=== PATIENT | female | born 2000 | race Caucasian/White ===

== ENCOUNTER 2022-02-03 15:58 | Observation (INO) ==
[2022-02-03 17:55] LABS: Basophils # (auto) 0.01 K/uL (0-0.2); Basophils % (auto) 0.1 %; Hematocrit (blood only) 36.7 % (37-47); Hemoglobin 13.1 g/dL (12.0-16.0); Immature Granulocytes # (auto) 0.04 K/uL (0.00-0.02); Immature Granulocytes % (auto) 0.3 %; Lymphocytes # (auto) 0.68 K/uL (1.2-3.4); Lymphocytes % (auto) 4.5 %; Mean Corpuscular Hgb Conc 35.7 g/dL (32-36); Mean Corpuscular Volume 89.5 fL (80-100); Mean Platelet Volume 9.5 fL (7.4-10.4); Monocytes # (auto) 1.17 K/uL (0.11-0.59); Monocytes % (auto) 7.7 %; Neutrophils # (auto) 13.28 K/uL (1.4-6.5); Neutrophils % (auto) 87.4 %; Platelet Count 228 K/uL (130-400); RDW Coefficient of Variation 12.6 % (11.5-14.5); RDW Standard Deviation 41.4 fL (36.4-46.3); White Blood Count 15.18 K/uL (4.8-10.8)
[2022-02-03 18:17] LABS: Alanine Aminotransferase 17 U/L (7-52); Albumin Globulin Ratio 1.6 (0.9-2); Albumin Level 4.7 gm/dl (3.4-5.0); Alkaline Phosphatase 52 U/L (34-104); Anion Gap 13 (3-11); Aspartate Aminotransferase 16 U/L (13-39); BUN Creatinine Ratio 17.8 (10-20); Bilirubin,Total 0.9 mg/dl (0.2-1.0); Blood Urea Nitrogen 13 mg/dl (6-23); Calcium 9.6 mg/dl (8.5-10.1); Carbon Dioxide 22 mmol/L (21-32); Chloride 101 mmol/L (98-107); Est GFR (African American) 137.4 ml/min; Est GFR (Non-African American) 118.6 ml/min; Globulin 2.9 gm/dl (2.5-4.0); Glucose 95 mg/dl (70-99(Fasting)); Lipase 12 U/L (11-82); Potassium 3.9 mmol/L (3.5-5.1); Sodium 136 mmol/L (136-145); Total Protein 7.6 gm/dl (6.0-8.3)
--- NOTE | 2022-02-03 19:11 | Emergency Department Note ---
Impression & Plan Sepsis, Abdominal pain, Pyelonephritis, Nausea vomiting and diarrhea, Acute dehydration ED Provider Note NAME: JANICE CORDOBA AGE: 21 SEX: F : 2000 ARRIVES VIA: Walk-In INFORMANT: Patient, ED PROVIDER(S): Hill Najera MD Chief Complaint: Abdominal pain, nausea vomiting, diarrhea HPI: Patient does present with the above symptoms and states that been ongoing approximate 3 days. The patient states that she did not go anywhere for spring other than at home which is in the [facility]. Patient has had low-grade temperature. Patient was seen at [facility] and then sent here for further evaluation and treatment. The patient denies any cough. The patient has had about 2 stools a day but says that they are loose. No recent antibiotics or known sick contacts. The patient denies any recent travel. The patient does admit to increasing urinary frequency but denies any dysuria hematuria. Patient denies any chest pains or shortness of breath. ROS: See HPI for pertinent positives and negatives. A total of 10 systems were reviewed and otherwise negative. Past medical history: See below Surgical history: See below Social history: See below Physical Exam: GENERAL: Mildly uncomfortable in appearance, wearing a mask. EYE EXAM: Normal conjunctiva. PERRL, no anisocoria and EOM's grossly intact w/o pain. NECK: Supple, no nuchal rigidity, no adenopathy, non-tender. No signs of mening ismus. LUNGS: Clear to auscultation. Normal chest wall mechanics. HEART: Tachycardic and regular, no MRG. ABDOMEN: Abdomen soft, mild diffuse abdominal pain but without localization, negative obturators and psoas, normo-active bowel sounds, no masses, no rebound or guarding. BACK: Mild left-sided CVA TTP. SKIN: No rashes and no bruising. UPPER EXTREMITIES: Upper extremities are grossly normal. LOWER EXTREMITIES: Grossly normal, no edema. NEURO EXAM: A&O x3, cranial nerves II-XII grossly intact, normal speech, moves all 4 extremities on command w/o issue. Differential diagnoses: Appendicitis, ovarian cyst, ovarian torsion, ectopic , TOA, PID, infections, diverticulitis, UTI, obstruction, mesenteric ischemia, aortic pathology, inflammatory bowel disease, renal colic, PUD, pancr eatitis, biliary pathology, hernia, volvulus, constipation, as well as other pathologies. Course: Patient was seen and evaluated the bedside. Full history physical exam was performed. Imaging Studies: See Below Cardiac monitoring: An order was placed for continuous cardiac monitoring. The monitor shows a rate of 110 with tachycardic and regular rhythm. MDM: Patient was seen due to concern for abdominal pain nausea vomiting diarrhea. Patient did have diffuse abdominal discomfort did have some mild left-sided flank discomfort. Blood work was obtained and the patient was treated symptom atically with IV fluids and nausea medication. CT abdomen pelvis was also obtained. Patient does have mild leukocytosis of 15 with a hemoglobin of 13. Platelet count is unremarkable. Kidney function unremarkable. Urinalysis does appear to be infected as the patient is positive for bacteria WBCs and nitrites. The patient CT does show findings consistent with a left-sided pyelonephritis. I did reevaluate the patient who stated that she had mild improvement in symptoms. The patient's mother eventually arrived and I did discuss observation versus close outpatient follow-up. After reassessment and repeat discussion with the patient and patient's mother at bedside they are primarily concerned about her pain and will refer to be observed at this time. Do not think this is unreasonable as she technically meets for sepsis. The patient did receive her Rocephin. Patient did receive additional IV fluids and Toradol. The patient did have a elevated temperature of 102 and was given a dose of Tylenol. I did speak with the on-call hospitalist Dr. Rush and the patient was admitted to [facility] medicine service. Past Med/Surg History Medical History No pertinent past medical history Surgical History No pertinent past surgical history Social History Smoking Status: Never smoker Hx Substance Use: Yes Non-Prescribed Medications: Marijuana Feels Safe at Home: Yes Allergies Allergies Allergy/AdvReac Type Severity Reaction Status Date / Time No Known Allergies Allergy Unverified 02/03/22 19:45 Home Meds Home Medications Medication Instructions Recorded Confirmed dextroamphetamine-amphetamine ER 10 mg PO DAILY 02/03/22 02/03/22 10 mg 24hr capsule,extend release (Adderall XR) escitalopram oxalate 10 mg tablet 10 mg PO DAILY 02/03/22 02/03/22 (Lexapro) Results & Data (ED) Vital Signs Vital Signs - 24 hr 02/03/22 16:05 02/03/22 19:11 02/03/22 21:19 Temperature 37.6 C H 37.7 C H Temperature Source Temporal Artery Scan Oral Pulse Rate 112 H Pulse Rate [Left Finger] 99 H 103 H Pulse Rhythm [Left Finger] Regular Respiratory Rate 21 16 14 Respiratory Effort / Characteristics Non-Labored Spontaneous Non-Labored Non-Labored Respiratory Depth Normal Normal Normal Respiratory Pattern Regular Regular Regular Blood Pressure 123/64 Blood Pressure [Right Arm] 118/70 112/66 Blood Pressure Mean 83 Blood Pressure Mean [Right Arm] 86 81 Blood Pressure Position Sitting Blood Pressure Position [Right Arm] Lying Lying Pulse Oximetry 100 100 100 Oxygen Delivery Method Room Air Room Air Room Air Sepsis Recent Fever Within 48 Hours Yes Sepsis New/Unexplained Change in Mental Status N/A Sepsis Action Taken by Nursing Physician Notified 02/03/22 22:10 Temperature 38.8 C H Temperature Source Oral Pulse Rate Pulse Rate [Left Finger] 101 H Pulse Rhythm [Left Finger] Respiratory Rate 16 Respiratory Effort / Characteristics Non-Labored Respiratory Depth Normal Respiratory Pattern Regular Blood Pressure Blood Pressure [Right Arm] 100/59 L Blood Pressure Mean Blood Pressure Mean [Right Arm] 72 Blood Pressure Position Blood Pressure Position [Right Arm] Pulse Oximetry 100 Oxygen Delivery Method Room Air Sepsis Recent Fever Within 48 Hours Sepsis New/Unexplained Change in Mental Status Sepsis Action Taken by Residential Medications Current Medication List: was personally reviewed by me Laboratory Data Attestation: I reviewed the patient's lab results. Result diagrams: 02/03/22 17:32 02/03/22 17:32 Lab Results 02/03/22 02/03/22 02/03/22 Range/Units 17:32 17:32 17:45 WBC 15.18 H (4.8-10.8) K/uL RBC 4.10 L (4.2-5.4) M/uL Hgb 13.1 (12.0-16.0) g/dL Hct 36.7 L (37-47) % MCV 89.5 (80-100) fL MCH 32.0 (25-34) pg MCHC 35.7 (32-36) g/dL RDW Std Deviation 41.4 (36.4-46.3) fL RDW Coeff of Frank 12.6 (11.5-14.5) % Plt Count 228 (130-400) K/uL MPV 9.5 (7.4-10.4) fL Immature Gran % (Auto) 0.3 % Neut % (Auto) 87.4 % Lymph % (Auto) 4.5 % [place] % (Auto) 7.7 % Eos % (Auto) 0.0 % Baso % (Auto) 0.1 % Neut # (Auto) 13.28 H (1.4-6.5) K/uL Lymph # (Auto) 0.68 L (1.2-3.4) K/uL [place] # (Auto) 1.17 H (0.11-0.59) K/uL Eos # (Auto) 0.00 (0-0.5) K/uL Baso # (Auto) 0.01 (0-0.2) K/uL Immature Gran # (Auto) 0.04 H (0.00-0.02) K/uL Sodium 136 (136-145) mmol/L Potassium 3.9 (3.5-5.1) mmol/L Chloride 101 (98-107) mmol/L Carbon Dioxide 22 (21-32) mmol/L Anion Gap 13 H (3-11) BUN 13 (6-23) mg/dl Creatinine 0.73 (0.6-1.2) mg/dl Est Cr Clr Drug Dosing Not Reportable Est GFR ( Amer) 137.4 ml/min Est GFR (Non-Af Amer) 118.6 ml/min BUN/Creatinine Ratio 17.8 (10-20) Glucose 95 (70-99(Fasting)) mg/dl Calcium 9.6 (8.5-10.1) mg/dl Total Bilirubin 0.9 (0.2-1.0) mg/dl AST 16 (13-39) U/L ALT 17 (7-52) U/L Alkaline Phosphatase 52 (34-104) U/L Total Protein 7.6 (6.0-8.3) gm/dl Albumin 4.7 (3.4-5.0) gm/dl Globulin 2.9 (2.5-4.0) gm/dl Albumin/Globulin Ratio 1.6 (0.9-2) Lipase 12 (11-82) U/L Urine Color Dark Yellow Urine Appearance Clear (Clear) Urine pH 6.0 (4.5-7.5) Ur Specific [place] 1.023 (1.000-1.030) Urine Protein 2+ H (Negative) Urine Glucose (UA) Negative (Negative) Urine Ketones 3+ H (Negative) Urine Blood 3+ H (Negative) Urine Nitrite Positive A (Negative) Urine Bilirubin Negative (Negative) Urine Urobilinogen Negative (Negative) Ur Leukocyte Esterase Negative (Negative) Urine WBC (Auto) 10-30 H (0-5) /hpf Urine RBC (Auto) 5-10 H (0-4) /hpf U Hyaline Cast (Auto) 10-30 H (0-5) /lpf U Epithel Cells (Auto) 0-5 (0-5) /lpf Urine Bacteria (Auto) 4+ H (Negative) POC Ur Test (NEG) 02/03/22 Range/Units 17:48 WBC (4.8-10.8) K/uL RBC (4.2-5.4) M/uL Hgb (12.0-16.0) g/dL Hct (37-47) % MCV (80-100) fL MCH (25-34) pg MCHC (32-36) g/dL RDW Std Deviation (36.4-46.3) fL RDW Coeff of Frank (11.5-14.5) % Plt Count (130-400) K/uL MPV (7.4-10.4) fL Immature Gran % (Auto) % Neut % (Auto) % Lymph % (Auto) % [place] % (Auto) % Eos % (Auto) % Baso % (Auto) % Neut # (Auto) (1.4-6.5) K/uL Lymph # (Auto) (1.2-3.4) K/uL [place] # (Auto) (0.11-0.59) K/uL Eos # (Auto) (0-0.5) K/uL Baso # (Auto) (0-0.2) K/uL Immature Gran # (Auto) (0.00-0.02) K/uL Sodium (136-145) mmol/L Potassium (3.5-5.1) mmol/L Chloride (98-107) mmol/L Carbon Dioxide (21-32) mmol/L Anion Gap (3-11) BUN (6-23) mg/dl Creatinine (0.6-1.2) mg/dl Est Cr Clr Drug Dosing Est GFR ( Amer) ml/min Est GFR (Non-Af Amer) ml/min BUN/Creatinine Ratio (10-20) Glucose (70-99(Fasting)) mg/dl Calcium (8.5-10.1) mg/dl Total Bilirubin (0.2-1.0) mg/dl AST (13-39) U/L ALT (7-52) U/L Alkaline Phosphatase (34-104) U/L Total Protein (6.0-8.3) gm/dl Albumin (3.4-5.0) gm/dl Globulin (2.5-4.0) gm/dl Albumin/Globulin Ratio (0.9-2) Lipase (11-82) U/L Urine Color Urine Appearance (Clear) Urine pH (4.5-7.5) Ur Specific [place] (1.000-1.030) Urine Protein (Negative) Urine Glucose (UA) (Negative) Urine Ketones (Negative) Urine Blood (Negative) Urine Nitrite (Negative) Urine Bilirubin (Negative) Urine Urobilinogen (Negative) Ur Leukocyte Esterase (Negative) Urine WBC (Auto) (0-5) /hpf Urine RBC (Auto) (0-4) /hpf U Hyaline Cast (Auto) (0-5) /lpf U Epithel Cells (Auto) (0-5) /lpf Urine Bacteria (Auto) (Negative) POC Ur Test NEG (NEG) Administered Medications Discontinued Medications Acetaminophen (Acetaminophen 500 Mg Tab) 1,000 mg PO NOW STA Stop: 02/03/22 22:16 Last Admin: 02/03/22 22:19 Dose: 1,000 mg Documented by: [id number] Sodium Chloride (Nss 1000ml) 1,000 mls @ 999 mls/hr IV .Q1H1M ONE Stop: 02/03/22 20:22 Last Infusion: 02/03/22 20:38 Dose: 0 mls/hr Documented by: [id number] Admin: 02/03/22 19:37 Dose: 999 mls/hr Documented by: [id number] Ceftriaxone Sodium (Rocephin) 2,000 mg in 70 mls @ 140 mls/hr IV NOW STA Stop: 02/03/22 21:06 Last Infusion: 02/03/22 22:07 Dose: 0 mls/hr Documented by: [id number] Admin: 02/03/22 21:12 Dose: 140 mls/hr Documented by: [id number] Sodium Chloride (Nss 1000ml) 1,000 mls @ 999 mls/hr IV .Q1H1M ONE Stop: 02/03/22 21:41 Last Admin: 02/03/22 21:12 Dose: 999 mls/hr Documented by: [id number] Ioversol (Optiray 320 100ml) 95 ml IV ONCE ONE Stop: 02/03/22 19:54 Last Admin: 02/03/22 19:54 Dose: 95 ml Documented by: [id number] Ketorolac Tromethamine (Ketorolac Tromethamine 15 Mg/Ml Vial) 10 mg IV NOW ONE Stop: 02/03/22 20:42 Last Admin: 02/03/22 21:11 Dose: 10 mg Documented by: [id number] Ondansetron HCl (Ondansetron Inj 2 Mg/Ml 2 Ml Vial) 4 mg IV NOW STA Stop: 02/03/22 19:23 Last Admin: 02/03/22 19:38 Dose: 4 mg Documented by: [id number] Imaging Data Radiologist's Impression: Abdomen/Pelvis CT 02/03/22 19:22 CT abd pelvis IV con only CLINICAL HISTORY: diffuse ab pain, n/v/d TECHNIQUE: Helical axial images of the abdomen and pelvis were obtained and displayed. Automated dose lowering techniques and/or adjustment according to patient size were utilized for this exam. This exam was performed with intravenous contrast. COMPARISON: None available at the time of this dictation. FINDINGS: Lower chest: No acute abnormality Liver: Unremarkable. No focal lesions are seen. Gallbladder and biliary tree: No calcified gallstones. Normal caliber wall. No intra- or extrahepatic biliary ductal dilation. Pancreas: Unremarkable, no focal lesions. Spleen: Unremarkable. Adrenals: Unremarkable. Kidneys and ureters: Wedge-shaped hypodensities are seen in the left kidney superior and inferior poles without cortical rim preservation. The right kidney is normal in appearance. Bladder: Limited evaluation due to underdistention. Reproductive organs: Unremarkable. Bowel: Unremarkable. Lymph nodes Retroperitoneal: Unremarkable. Mesenteric: Unremarkable. Pelvic: Unremarkable. Peritoneum: Normal. Vessels: Unremarkable. Abdominal wall: Unremarkable. Bones: Unremarkable. IMPRESSION: Wedge-shaped hypodensities in the left kidney without a cortical rim. Findings are favored to represent pyelonephritis. ACT 112: Negative or not required by law. Electronically signed by: Rajendra Whitehead M.D. 02/03/2022 8:04 PM Discharge Plan Visit Data Chief Complaint: Abdominal Pain Stated Complaint: SENT FROOM MED EX, PSBLE APPENDICITIS ED Provider: Hill Najera Discharge Problem: Sepsis, Abdominal pain, Pyelonephritis, Nausea vomiting and diarrhea, Acute dehydration Forms Stand Alone Forms: [place] Prescriptions Prescriptions: No Action dextroamphetamine-amphetamine [Adderall XR] 10 mg Capsule,Extended Release 24hr 10 mg PO DAILY RF: 0 escitalopram oxalate [Lexapro] 10 mg Tablet 10 mg PO DAILY RF: 0 Referrals Referrals: PCP,NO [Physician] -
[2022-02-03] MEDS ORDERED: SODIUM CHLORIDE 0.9% 1000ML 1,000 ML IV ONE ×2 (19:22→20:41)
[2022-02-03] MEDS ORDERED: ONDANSETRON INJ 2 MG/ML 2 ML VIAL IV STA (19:22)
[2022-02-03 19:41] LABS: Appearance Urine Clear (Clear); Bacteria Urine Automated 4+ (Negative); Bilirubin Urine Negative (Negative); Blood Urine 3+ (Negative); Color Urine Dark Yellow; Epithelial Cell Urine Auto 0-5 /lpf (0-5); Glucose Urine UA Negative (Negative); Ketones Urine 3+ (Negative); Leukocyte Esterase Urine Negative (Negative); Nitrite Urine Positive (Negative); Protein Urine 2+ (Negative); Specific Gravity Urine 1.023 (1.000-1.030); Urobilinogen Urine Negative (Negative)
[2022-02-03] MEDS ORDERED: OPTIRAY 320 100ml IV ONE (19:53)
--- NOTE | 2022-02-03 20:05 | CT Scan Report ---
CT abd pelvis IV con only CLINICAL HISTORY: diffuse ab pain, n/v/d TECHNIQUE: Helical axial images of the abdomen and pelvis were obtained and displayed. Automated dose lowering techniques and/or adjustment according to patient size were utilized for this exam. This e xam was performed with intravenous contrast. COMPARISON: None available at the time of this dictation. FINDINGS: Lower chest: No acute abnormality Liver: Unremarkable. No focal lesions are seen. Gallbladder and biliary tree: No calcified gallstones. Normal caliber wall. No intra- or extrahepatic biliary ductal dilation. Pancreas: Unremarkable, no focal lesions. Spleen: Unremarkable. Adrenals: Unremarkable. Kidneys and ureters: Wedge-shaped hypodensities are seen in the left kidney superior and inferior maria es without cortical rim preservation. The right kidney is normal in appearance. Bladder: Limited evaluation due to underdistention. Reproductive organs: Unremarkable. Bowel: Unremarkable. Lymph nodes Retroperitoneal: Unremarkable. Mesenteric: Unremarkable. Pelvic: Unremarkable. Peritoneum: Normal. Vessels: Unremarkable. Abdominal wall: Unremarkable. Bones: Unremarkable. IMPRESSION: Wedge-shaped hypodensities in the left kidney without a cortical rim. Findings are favored to represe nt pyelonephritis. ACT 112: Negative or not required by law. Electronically signed by: Rajendra Whitehead M.D. 02/03/2022 8:04 PM
[2022-02-03] MEDS ORDERED: cefTRIAXone SODIUM 2,000 MG/70 ML BAG IV STA (20:37)
[2022-02-03] MEDS ORDERED: KETOROLAC TROMETHAMINE 15 MG/ML VIAL IV ONE (20:41)
[2022-02-03] MEDS ORDERED: ACETAMINOPHEN 500 MG TAB PO STA (22:15)
--- NOTE | 2022-02-03 22:31 | History & Physical Report ---
Date of Service February 03, 2022 Assessment & Plan (1) Pyelonephritis: (2) Sepsis: (3) Abdominal pain: (4) Nausea vomiting and diarrhea: (5) Acute dehydration: (6) ADHD: (7) Anxiety and depression: Plan: Karina Escalante is a 21-year-old female with PMH of ADHD and anxiety/depression here for abdominal pain, generalized malaise, weakness, body aches, n/v for 3-4 days. Admitted for treatment of pyelonephritis. Pyelonephritis - Meeting SIRS criteria for sepsis - Leukocytosis of 15K with neutrophilic predominance - CT abd/pelvis consistent with pyelo - Febrile -- received APAP with good response, continue as needed for pain/fever - Received CTX 2g IV x1 in ED -- continue on CTX daily - Zofran prn for nausea - NSS at 80 cc/h for hydration, as patient not tolerating much PO - Clear liquid diet, advance as tolerated - Famotidine IV daily Depression/Anxiety - Continue home Lexapro ADHD - Continue home Adderall XR DVT ppx: SCDs, no chemoppx in young, mobile patient FEN/GI: Clear liquid diet, advance as tolerated, NSS @ 80 cc/h Dispo: Admit to [facility] for observation CODE STATUS: Full History of Present Illness Primary Care Provider: [facility] Karina Escalante is a 21-year-old female with PMH of ADHD and anxiety/depression here for abdominal pain, generalized malaise, weakness, body aches, n/v for 3-4 days. States her illness course began with muscle aches, specifically in her lower back. She states she had injured her lower back during a workout and thought it might be related to that. However, she then began developing generalized malaise, and had fever as well. She thought she probably had a viral infection. Her pain then started to radiate to her lower abdomen as well. She says yesterday it felt like she was getting better -- her fever had broken, she wasn't as fatigued. However, today around 2AM woke up feeling much worse. She had nausea, vomiting (about 10 times), and her pain was much worse. She had to lay down in the shower and says she stayed in there with the warm water running until 10AM. She visited an urgent care and was advised to come to ED. Upon eval here, patient received IVF, zofran x1. She has lab work with leukocytosis of 15K with neutrophilic predominance, normal electrolytes, UA showed 2+ protein, 3+ ketones, 3+ blood, positive nitrites, negative LE, 10-30 WBC, 5-10 RBC, 10-30 hyaline casts, 4+ bacteria. CT A/P showed wedge-shaped hypodensities in the left kidney without a cortical rim -- findings are favored to represent pyelonephritis. At that point patient was given a dose of CTX 2g IV, and patient did have a fever to 102F so received a dose of APAP IV. At present patient states she still has abd discomfort and feels warm. She does not have CP, palp, cough, SOB, current n/v, numbness, [place], dizziness, rash. Allergies Allergy/AdvReac Type Severity Reaction Status Date / Time No Known Allergies Allergy Unverified 02/03/22 19:45 Home Medications Medication Instructions Recorded Confirmed Type dextroamphetamine-amphetamine ER 10 mg PO DAILY 02/03/22 02/03/22 History 10 mg 24hr capsule,extend release (Adderall XR) escitalopram oxalate 10 mg tablet 10 mg PO DAILY 02/03/22 02/03/22 History (Lexapro) Past Med/Surg History Medical History No pertinent past medical history Surgical History No pertinent past surgical history Social History Smoking Status: Never smoker Second Hand Exposure: No; Do You Dip or Chew Tobacco: No; Hx Alcohol Use: No Hx Substance Use: Yes Non-Prescribed Medications: Marijuana Last Used Substance: Days (ago) Last Used Substance Other:: smoked marijuana around 4 days ago Preferred Language: Croatian Communication Ability: Effective Nutrition Educator Required: No Beliefs That Will Affect Care: None Current Living Situation: Other Current Living Situation Comment: lives in apartment with roommates Other Information That Helps Us Care for You: No Feels Safe at Home: Yes Safety Concerns: Feels Safe At This Time Assistive Devices: None Review of Systems Review of Systems: All systems reviewed & are unremarkable except as noted in HPI & below Physical Exam Physical Exam: GENERAL: A&Ox3. Ill-appearing but NAD. HEENT: PERRL, EOMI. Moist mucous membranes. NECK: No JVD. No lymphadenopathy. CHEST/LUNGS: CTAB A/P. No crackles, wheezes, rales, rhonchi. HEART: RRR. No m/g/r. No carotid bruits. ABDOMEN: TTP lower abdomen, soft. BS+ x4. CVA tenderness + left side. EXTREMITIES: No cyanosis, no clubbing, no edema SKIN: Warm and dry. No rashes or lesions. PSYCHIATRIC: Euthymic affect, no SI, no pressured speech, no hallucinations NEUROLOGIC: No FND. CN II-XII grossly intact. Results & Data Results & Data ([facility]) Vital Signs (Past 12 Hours) Vital Signs Temp Pulse Pulse Resp BP BP Pulse Ox 02/03/22 22:10 38.8 C H 101 H 16 100/59 L 100 02/03/22 21:19 103 H 14 112/66 100 02/03/22 19:11 37.7 C H 99 H 16 118/70 100 02/03/22 16:05 37.6 C H 112 H 21 123/64 100 Supervising Physician Co-Signing Physician Notes Patient seen and examined, chart reviewed, case discussed with Dr. Lilian Dutton and I agree with the assessment and plan as above. In brief, patient is a 21yo female - non-, immunocompetent, presenting with acute pyelonephritis. Patient febrile in ER, tachycardic, elevated WBC count and infected appearing UA On exam she is tired in appearance but nontoxic MM slightly dry CVA tenderness per Dr. Garcia's note above +S1/S2, regular, no m/r/g Lungs -CTA Images and labs reviewed Assessment/Plan -Pyelonephritis - follow cultures, Ceftriaxone, pain, fever and nausea control -Remainder as above Resident Activity Tracking Resident Involvement: Resident Care Provided Care Provided: Adult Hospital Medicine (1) Sepsis Sepsis acute organ dysfunction status: without acute organ dysfunction Sepsis type: sepsis due to unspecified organism Qualified Code(s): A41.9 - Sepsis, unspecified organism (2) Abdominal pain Abdominal location: generalized Qualified Code(s): R10.84 - Generalized abdom inal pain
[2022-02-03] MEDS ORDERED: ONDANSETRON INJ 2 MG/ML 2 ML VIAL IV PRN (23:57)
[2022-02-03] MEDS ORDERED: ACETAMINOPHEN 325 MG TAB PO PRN (23:57)
[2022-02-04] MEDS: SODIUM CHLORIDE 0.9% 1000ML 1,000 ML IV SCH ×2 (00:18→09:40)
[2022-02-04] MEDS ORDERED: SODIUM CHLORIDE 0.9% 1000ML 1,000 ML IV ONE (01:04)
[2022-02-04] MEDS: FAMOTIDINE 20 MG in SYRINGE 3 ML IV SCH ×2 (01:08→08:58)
--- NOTE | 2022-02-04 03:17 | Billing Data ---
Date of Service February 03, 2022 Coding Level of Care Code INT OBSERVATION CARE 50M LVL 2
--- NOTE | 2022-02-04 07:53 | Hospitalist Progress Note ---
Date of Service February 04, 2022 Assessment & Plan (1) Pyelonephritis: Plan: Karina Escalante is a 21-year-old female with PMH of ADHD and anxiety/depression here for abdominal pain, generalized malaise, weakness, body aches, n/v for 3-4 days. Admitted for treatment of pyelonephritis. Pyelonephritis Meeting SIRS criteria for sepsis - Leukocytosis of 15K with neutrophilic predominance on admission CTA/P c/w L pyelonephritis Given 2gm IV ceftriaxone in ER, continued --> WBC now wnl but still having fever. Will obtain blood cultures, although reporting feeling better Urine cx with gram negative bacilli --> monitor Given additional 1L IVF overnight for lower BP, improved 113/68 Decreased IVF to 60cc/hr this afternoon as diet advance to regular. Antiemetics prn --> No further n/v reported today Famotidine for GI prophyalxis while inpatient (2) Sepsis: Plan: 2nd to above, tx as outlined (3) Abdominal pain: Plan: 2nd to above diet as tolerated (4) Nausea vomiting and diarrhea: Plan: antiemetics prn no furhter issue reported (5) Acute dehydration: Plan: has received 2L IVF so far, continues on NS @ 125cc/hr but decreased to 60cc/hr while advancing diet and plan to discontinue this evening to see if able to keep up with oral fluids (6) ADHD: Plan: continue usual adderrall 10mg daily (7) Anxiety and depression: Plan: continue usual lexapro 10mg daily Plan: DVT ppx: SCDs, no chemoppx in young, mobile patient Continued inpatient stay while advancing diet/ensuring patient able to keep up with PO intake. Possible d/c tomorrow on PO abx once cx finalized Changed to full admission Admission and Anticipated Discharge Date Admission Date: February 03, 2022 Subjective Patient evaluated this afternoon. Feeling much better but still with occasional fever but states she is improved. Less left lower back pain. Tolerating liquid diet without issue, would be ok with advancement of diet. Will continue IVF for now and if keeping up with oral intake can possibly discontinue IVF later this evening. No chest pain/shortness of breath. Discussed using incentive spirometer to prevent atelectasis. Discussed awaiting culture results and hopefully discharge tomorrow morning. Updated mother on phone this afternoon per patient request. Questions/concerns addressed. Review of Systems Review of Systems: All systems reviewed & are unremarkable except as noted in HPI & below Physical Exam Physical Exam: GENERAL: A&Ox3, sitting up in bed, wn/wd, no acute distress HEENT: eyes anicteric, pupils equal, EOMI, trachea midline, mmm Resp: CTAB, no w/c/r, on room air CV: RRR, no m/r/g, no edema, pulses palpable GI: +BS, soft, non-tender : no mckay, +mild L CVA tenderness Skin: warm, clammy Psych: AOx3, pleasant and cooperative Neuro: no focal deficits, CN grossly intact Results & Data Results & Data ([facility]) Vital Signs (Past 12 Hours) Vital Signs Temp Pulse Resp BP BP Pulse Ox 02/04/22 07:25 37.9 C H 89 14 103/66 99 02/04/22 02:18 36.7 C 80 17 98/62 L 100 02/04/22 00:51 36.9 C 62 16 87/51 L 100 02/03/22 23:50 37.1 C 82 16 91/56 L 97 02/03/22 23:45 37.2 C 87 16 104/47 L 97 02/03/22 22:56 37.7 C H 102 H 14 107/52 L 98 02/03/22 22:10 38.8 C H 101 H 16 100/59 L 100 02/03/22 21:19 103 H 14 112/66 100 Laboratory Results 02/03/22 02/03/22 02/03/22 Range/Units 22:20 17:48 17:45 WBC (4.8-10.8) K/uL RBC (4.2-5.4) M/uL Hgb (12.0-16.0) g/dL Hct (37-47) % MCV (80-100) fL MCH (25-34) pg MCHC (32-36) g/dL RDW Std Deviation (36.4-46.3) fL RDW Coeff of Frank (11.5-14.5) % Plt Count (130-400) K/uL MPV (7.4-10.4) fL Immature Gran % (Auto) % Neut % (Auto) % Lymph % (Auto) % Pierce % (Auto) % Eos % (Auto) % Baso % (Auto) % Neut # (Auto) (1.4-6.5) K/uL Lymph # (Auto) (1.2-3.4) K/uL Pierce # (Auto) (0.11-0.59) K/uL Eos # (Auto) (0-0.5) K/uL Baso # (Auto) (0-0.2) K/uL Immature Gran # (Auto) (0.00-0.02) K/uL Sodium (136-145) mmol/L Potassium (3.5-5.1) mmol/L Chloride (98-107) mmol/L Carbon Dioxide (21-32) mmol/L Anion Gap (3-11) BUN (6-23) mg/dl Creatinine (0.6-1.2) mg/dl Est Cr Clr Drug Dosing Est GFR ( Amer) ml/min Est GFR (Non-Af Amer) ml/min BUN/Creatinine Ratio (10-20) Glucose (70-99(Fasting)) mg/dl Calcium (8.5-10.1) mg/dl Total Bilirubin (0.2-1.0) mg/dl AST (13-39) U/L ALT (7-52) U/L Alkaline Phosphatase (34-104) U/L Total Protein (6.0-8.3) gm/dl Albumin (3.4-5.0) gm/dl Globulin (2.5-4.0) gm/dl Albumin/Globulin Ratio (0.9-2) Lipase (11-82) U/L Urine Color Dark Yellow Urine Appearance Clear (Clear) Urine pH 6.0 (4.5-7.5) Ur Specific [place] 1.023 (1.000-1.030) Urine Protein 2+ H (Negative) Urine Glucose (UA) Negative (Negative) Urine Ketones 3+ H (Negative) Urine Blood 3+ H (Negative) Urine Nitrite Positive A (Negative) Urine Bilirubin Negative (Negative) Urine Urobilinogen Negative (Negative) Ur Leukocyte Esterase Negative (Negative) Urine WBC (Auto) 10-30 H (0-5) /hpf Urine RBC (Auto) 5-10 H (0-4) /hpf U Hyaline Cast (Auto) 10-30 H (0-5) /lpf U Epithel Cells (Auto) 0-5 (0-5) /lpf Urine Bacteria (Auto) 4+ H (Negative) POC Ur Test NEG (NEG) SARS-CoV-2, RNA, NAAT NEGATIVE (NEGATIVE) 02/03/22 02/03/22 Range/Units 17:32 17:32 WBC 15.18 H (4.8-10.8) K/uL RBC 4.10 L (4.2-5.4) M/uL Hgb 13.1 (12.0-16.0) g/dL Hct 36.7 L (37-47) % MCV 89.5 (80-100) fL MCH 32.0 (25-34) pg MCHC 35.7 (32-36) g/dL RDW Std Deviation 41.4 (36.4-46.3) fL RDW Coeff of Frank 12.6 (11.5-14.5) % Plt Count 228 (130-400) K/uL MPV 9.5 (7.4-10.4) fL Immature Gran % (Auto) 0.3 % Neut % (Auto) 87.4 % Lymph % (Auto) 4.5 % Pierce % (Auto) 7.7 % Eos % (Auto) 0.0 % Baso % (Auto) 0.1 % Neut # (Auto) 13.28 H (1.4-6.5) K/uL Lymph # (Auto) 0.68 L (1.2-3.4) K/uL Pierce # (Auto) 1.17 H (0.11-0.59) K/uL Eos # (Auto) 0.00 (0-0.5) K/uL Baso # (Auto) 0.01 (0-0.2) K/uL Immature Gran # (Auto) 0.04 H (0.00-0.02) K/uL Sodium 136 (136-145) mmol/L Potassium 3.9 (3.5-5.1) mmol/L Chloride 101 (98-107) mmol/L Carbon Dioxide 22 (21-32) mmol/L Anion Gap 13 H (3-11) BUN 13 (6-23) mg/dl Creatinine 0.73 (0.6-1.2) mg/dl Est Cr Clr Drug Dosing Not Reportable Est GFR ( Amer) 137.4 ml/min Est GFR (Non-Af Amer) 118.6 ml/min BUN/Creatinine Ratio 17.8 (10-20) Glucose 95 (70-99(Fasting)) mg/dl Calcium 9.6 (8.5-10.1) mg/dl Total Bilirubin 0.9 (0.2-1.0) mg/dl AST 16 (13-39) U/L ALT 17 (7-52) U/L Alkaline Phosphatase 52 (34-104) U/L Total Protein 7.6 (6.0-8.3) gm/dl Albumin 4.7 (3.4-5.0) gm/dl Globulin 2.9 (2.5-4.0) gm/dl Albumin/Globulin Ratio 1.6 (0.9-2) Lipase 12 (11-82) U/L Urine Color Urine Appearance (Clear) Urine pH (4.5-7.5) Ur Specific [place] (1.000-1.030) Urine Protein (Negative) Urine Glucose (UA) (Negative) Urine Ketones (Negative) Urine Blood (Negative) Urine Nitrite (Negative) Urine Bilirubin (Negative) Urine Urobilinogen (Negative) Ur Leukocyte Esterase (Negative) Urine WBC (Auto) (0-5) /hpf Urine RBC (Auto) (0-4) /hpf U Hyaline Cast (Auto) (0-5) /lpf U Epithel Cells (Auto) (0-5) /lpf Urine Bacteria (Auto) (Negative) POC Ur Test (NEG) SARS-CoV-2, RNA, NAAT (NEGATIVE) Diagnostic Findings Abdomen/Pelvis CT 02/03/22 19:22 CT abd pelvis IV con only CLINICAL HISTORY: diffuse ab pain, n/v/d TECHNIQUE: Helical axial images of the abdomen and pelvis were obtained and displayed. Automated dose lowering techniques and/or adjustment according to patient size were utilized for this exam. This exam was performed with intravenous contrast. COMPARISON: None available at the time of this dictation. FINDINGS: Lower chest: No acute abnormality Liver: Unremarkable. No focal lesions are seen. Gallbladder and biliary tree: No calcified gallstones. Normal caliber wall. No intra- or extrahepatic biliary ductal dilation. Pancreas: Unremarkable, no focal lesions. Spleen: Unremarkable. Adrenals: Unremarkable. Kidneys and ureters: Wedge-shaped hypodensities are seen in the left kidney superior and inferior poles without cortical rim preservation. The right kidney is normal in appearance. Bladder: Limited evaluation due to underdistention. Reproductive organs: Unremarkable. Bowel: Unremarkable. Lymph nodes Retroperitoneal: Unremarkable. Mesenteric: Unremarkable. Pelvic: Unremarkable. Peritoneum: Normal. Vessels: Unremarkable. Abdominal wall: Unremarkable. Bones: Unremarkable. IMPRESSION: Wedge-shaped hypodensities in the left kidney without a cortical rim. Findings are favored to represent pyelonephritis. ACT 112: Negative or not required by law. Electronically signed by: Rajendra Whitehead M.D. 02/03/2022 8:04 PM PG Care Time/CCT Total # of Minutes Spent Total Time Spent with Patient: Total time spent is greater than 50% in coordination of care (as documented) at patient's floor/unit and/or counseling patient: Coding Level of Care Code 52304 Subseq Hosp Care Lvl 2 Diagnoses Pyelonephritis N12 Sepsis A41.9 Sepsis acute organ dysfunction status: without acute organ dysfunction Sepsis type: sepsis due to unspecified organism Abdominal pain R10.84 Abdominal location: generalized Nausea vomiting and diarrhea R11.2; R19.7 Acute dehydration E86.0 ADHD F90.9 Anxiety and depression F41.9; F32.A (1) Sepsis Sepsis acute organ dysfunction status: without acute organ dysfunction Sepsis type: sepsis due to unspecified organism Qualified Code(s): A41.9 - Sepsis, unspecified organism (2) Abdominal pain Abdominal location: generalized Qualified Code(s): R10.84 - Generalized abdominal pain
[2022-02-04] MEDS: AMPHETAMINE ASP/SULF/DEXTRAMPH 10 MG TAB PO SCH (08:53)
[2022-02-04] MEDS: ESCITALOPRAM OXALATE 10 MG TAB PO SCH (08:53)
[2022-02-04 10:09] LABS: Hematocrit (blood only) 28.7 % (37-47); Hemoglobin 10.6 g/dL (12.0-16.0); Mean Corpuscular Hemoglobin 33.1 pg (25-34); Mean Corpuscular Hgb Conc 36.9 g/dL (32-36); Mean Corpuscular Volume 89.7 fL (80-100); Platelet Count 175 K/uL (130-400); RDW Coefficient of Variation 12.6 % (11.5-14.5); RDW Standard Deviation 41.1 fL (36.4-46.3); White Blood Count 9.77 K/uL (4.8-10.8)
[2022-02-04 10:39] LABS: BUN Creatinine Ratio 10.8 (10-20); Calcium 7.8 mg/dl (8.5-10.1); Creatinine Clr Calc Pharmacy 121.4 ml/min; Est GFR (African American) 148.1 ml/min; Est GFR (Non-African American) 127.8 ml/min; Potassium 3.5 mmol/L (3.5-5.1)
[2022-02-04] MEDS ORDERED: KETOROLAC TROMETHAMINE 15 MG/ML VIAL IV PRN (16:40)
[2022-02-04] MEDS ORDERED: ACETAMINOPHEN 325 MG TAB PO ONE (16:42)
[2022-02-04] MEDS ORDERED: ACETAMINOPHEN 500 MG TAB PO PRN (16:42)
--- NOTE | 2022-02-05 07:40 | Discharge Summary ---
Date of Service February 05, 2022 Admission HPI Per Admitting Provider Karina Escalante is a 21-year-old female with PMH of ADHD and anxiety/depression here for abdominal pain, generalized malaise, weakness, body aches, n/v for 3-4 days. States her illness course began with muscle aches, specifically in her lower back. She states she had injured her lower back during a workout and thought it might be related to that. However, she then began developing generalized malaise, and had fever as well. She thought she probably had a viral infection. Her pain then started to radiate to her lower abdomen as well. She says yesterday it felt like she was getting better -- her fever had broken, she wasn't as fatigued. However, today around 2AM woke up feeling much worse. She had nausea, vomiting (about 10 times), and her pain was much worse. She had to lay down in the shower and says she stayed in there with the warm water running until 10AM. She visited an urgent care and was advised to come to ED. Upon eval here, patient received IVF, zofran x1. She has lab work with leukocytosis of 15K with neutrophilic predominance, normal electrolytes, UA showed 2+ protein, 3+ ketones, 3+ blood, positive nitrites, negative LE, 10-30 WBC, 5-10 RBC, 10-30 hyaline casts, 4+ bacteria. CT A/P showed wedge-shaped hypodensities in the left kidney without a cortical rim -- findings are favored to represent pyelonephritis. At that point patient was given a dose of CTX 2g IV, and patient did have a fever to 102F so received a dose of APAP IV. At present patient states she still has abd discomfort and feels warm. She does not have CP, palp, cough, SOB, current n/v, numbness, [place], dizziness, rash. Admission Exam Per Admitting Provider GENERAL: A&Ox3. Ill-appearing but NAD. HEENT: PERRL, EOMI. Moist mucous membranes. NECK: No JVD. No lymphadenopathy. CHEST/LUNGS: CTAB A/P. No crackles, wheezes, rales, rhonchi. HEART: RRR. No m/g/r. No carotid bruits. ABDOMEN: TTP lower abdomen, soft. BS+ x4. CVA tenderness + left side. EXTREMITIES: No cyanosis, no clubbing, no edema SKIN: Warm and dry. No rashes or lesions. PSYCHIATRIC: Euthymic affect, no SI, no pressured speech, no hallucinations NEUROLOGIC: No FND. CN II-XII grossly intact. Principal Diagnosis Pyelonephritis Discharge Exam GENERAL: A&Ox3, sitting up in bed, wn/wd, no acute distress HEENT: eyes anicteric, pupils equal, EOMI, trachea midline, mmm Resp: CTAB, no w/c/r, on room air CV: RRR, no m/r/g, no edema, pulses palpable GI: +BS, soft, non-tender : no mckay, +NO further CVA tenderness Skin: warm, clammy Psych: AOx3, pleasant and cooperative Neuro: no focal deficits, CN grossly intact Discharge Data Allergies Allergy/AdvReac Type Severity Reaction Status Date / Time No Known Allergies Allergy Unverified 02/03/22 19:45 Consultations 02/03/22 22:10 ED Decision to Admit Stat Ordered Studies Abdomen/Pelvis CT 02/03/22 19:22 CT abd pelvis IV con only CLINICAL HISTORY: diffuse ab pain, n/v/d TECHNIQUE: Helical axial images of the abdomen and pelvis were obtained and displayed. Automated dose lowering techniques and/or adjustment according to patient size were utilized for this exam. This exam was performed with intravenous contrast. COMPARISON: None available at the time of this dictation. FINDINGS: Lower chest: No acute abnormality Liver: Unremarkable. No focal lesions are seen. Gallbladder and biliary tree: No calcified gallstones. Normal caliber wall. No intra- or extrahepatic biliary ductal dilation. Pancreas: Unremarkable, no focal lesions. Spleen: Unremarkable. Adrenals: Unremarkable. Kidneys and ureters: Wedge-shaped hypodensities are seen in the left kidney superior and inferior poles without cortical rim preservation. The right kidney is normal in appearance. Bladder: Limited evaluation due to underdistention. Reproductive organs: Unremarkable. Bowel: Unremarkable. Lymph nodes Retroperitoneal: Unremarkable. Mesenteric: Unremarkable. Pelvic: Unremarkable. Peritoneum: Normal. Vessels: Unremarkable. Abdominal wall: Unremarkable. Bones: Unremarkable. IMPRESSION: Wedge-shaped hypodensities in the left kidney without a cortical rim. Findings are favored to represent pyelonephritis. ACT 112: Negative or not required by law. Electronically signed by: Rajendra Whitehead M.D. 02/03/2022 8:04 PM Hospital Course (1) Pyelonephritis: Karina Escalante is a 21-year-old female with PMH of ADHD and anxiety/depression here for abdominal pain, generalized malaise, weakness, body aches, n/v for 3-4 days. Admitted for treatment of pyelonephritis. Pyelonephritis Meeting SIRS criteria for sepsis - Leukocytosis of 15K with neutrophilic predominance on admission --> wnl on repeat CTA/P c/w L pyelonephritis IVF provided during inpatient stay, discontinued and able to keep up with PO intake Given 2gm IV ceftriaxone in ER, continued but was ordered for evening 02/05 start and called pharmacy to admin dose AM prior to discharge. --> Urine cx with ecoli, sensitive to Cipro and will send on PO additional 5 days to cover for pyelo and also cover for any missed doses as 5 days sufficient for pyelo Blood cultures ngtd Eating/drinking without further nausea or vomiting. [place] stable for discharge Educated to continue tylenol as needed for fever/pain but if continued fevers past 24 hours without resolution should return School noted provided (2) Sepsis: 2nd to above, tx as outlined (3) Abdominal pain: 2nd to above diet as tolerated -- advanced without issue to regular diet (4) Nausea vomiting and diarrhea: antiemetics prn no further issue reported but did send some zofran in case needed for nausea from cipro (5) Acute dehydration: IVF with improvement/resolution and keeping up with oral intake (6) ADHD: continued usual Adderall 10mg daily (7) Anxiety and depression: continued usual lexapro 10mg daily Total Time Total Time Spent Total Time Spent (In Minutes): 45 Discharge Plan Discharge Items Patient Disposition: Home - Self-Care Reason For Visit: PYELONEPHRITIS Discharge Diagnosis: Pyelonephritis Goals: You have been hospitalized for an acute medical problem. During your stay at [facility], we have made an effort to correct the problem that brought you to the hospital while keeping you as comfortable as possible. Me dications were used to bring your condition under control and your discharge instructions will include directions for any medications you should take after leaving the hospital. Please make sure you see your Primary Care Provider as part of your follow up plan. Activity: Resume your previous activity Non-emergency contact: Primary Care Provider Call non-emergency contact if: you have any medication questions and your symptoms worsen Follow-up/Referrals: [facility] [Primary Care Provider] - (PATIENT IS RESPONSIBLE FOR MAKING HER OWN F/U APPT WITH [facility].) Diet: Regular Addtl Attending Provider Instructions: You have been hospitalized for pyelonephritis, confirmed on imaging. You have been treated with IV antibiotics and are being sent home on a course of Ciprofloxacin 500mg by mouth TWICE a DAY for another five days to complete a 7 day course. You got the dose of IV antibiotic today, and should start the oral pills tomorrow morning. You have been able to keep up with your oral intake and may continue to have cyclic fevers for approximately another 2 or so days, even with treated pyelonephritis. You should continue to alternate tylenol and ibuprofen for pain/fever and ensure to stay well hydrated. You have also been sent a couple zofran in case as needed for nausea. You should follow up with S in the next 7-10 days to monitor your progress. Please return to the ER for any worsening pain, inability to keep up with oral intake, or for any other symptoms concerning for you. It has been a pleasure being a part of the medical team providing for you while you have been in the hospital. Take care! Pending Studies at Discharge: Yes Studies:: Blood cultures -- no growth to date Stand-Alone Forms: [employer], Work/School Release Medications and DC Order Prescriptions: New acetaminophen [Tylenol Extra Strength] 500 mg Tablet 1,000 mg PO Q8H PRNQty: 0 RF: 0 ciprofloxacin HCl 500 mg tablet 500 mg PO BID 5 Days Qty: 10 RF: 0 ondansetron 4 mg tablet,disintegrating 4 mg PO Q8H PRN (Reason: nausea and vomiting) 4 Days Qty: 7 RF: 0 Continued dextroamphetamine-amphetamine [Adderall XR] 10 mg Capsule,Extended Release 24hr 10 mg PO DAILY RF: 0 escitalopram oxalate [Lexapro] 10 mg Tablet 10 mg PO DAILY RF: 0 Discharge Orders: Discharge Order (Routine); Ordered 02/05/22 Ordered By: Arlet Ervin Admission Data Admit Date/Time: 02/04/22 13:08 Attending Provider: Ad Chawla Admit Provider: Markel Portillo Primary Care Provider: [place] Other Providers: Juliette Rush Other Interventions: Discharge Summary Assessment (RN) Last Done: 02/05/22 11:25 Coding Level of Care Code D/C DAY MANAGEMENT >30 MINS Diagnoses Pyelonephritis N12 Sepsis A41.9 Sepsis acute organ dysfunction status: without acute organ dysfunction Sepsis type: sepsis due to unspecified organism Abdominal pain R10.84 Abdominal location: generalized Nausea vomiting and diarrhea R11.2; R19.7 Acute dehydration E86.0 ADHD F90.9 Anxiety and depression F41.9; F32.A
[2022-02-05] MEDS ORDERED: cefTRIAXone SODIUM 1,000 MG in DEXTROSE 5% 50 ML IV ONE (07:45)
[2022-02-05 08:16] LABS: Basophils # (auto) 0.02 K/uL (0-0.2); Basophils % (auto) 0.2 %; Eosinophils # (auto) 0.04 K/uL (0-0.5); Eosinophils % (auto) 0.4 %; Hematocrit (blood only) 28.9 % (37-47); Hemoglobin 10.1 g/dL (12.0-16.0); Immature Granulocytes # (auto) 0.02 K/uL (0.00-0.02); Immature Granulocytes % (auto) 0.2 %; Lymphocytes % (auto) 15.5 %; Mean Corpuscular Hemoglobin 31.8 pg (25-34); Mean Corpuscular Hgb Conc 34.9 g/dL (32-36); Mean Corpuscular Volume 90.9 fL (80-100); Mean Platelet Volume 9.4 fL (7.4-10.4); Monocytes # (auto) 1.17 K/uL (0.11-0.59); Monocytes % (auto) 12.9 %; Neutrophils # (auto) 6.39 K/uL (1.4-6.5); Neutrophils % (auto) 70.8 %; Platelet Count 206 K/uL (130-400); RDW Coefficient of Variation 12.6 % (11.5-14.5); RDW Standard Deviation 42.6 fL (36.4-46.3); Red Blood Count 3.18 M/uL (4.2-5.4); White Blood Count 9.04 K/uL (4.8-10.8)
[2022-02-05 08:39] LABS: Albumin Level 3.4 gm/dl (3.4-5.0); Anion Gap 5 (3-11); BUN Creatinine Ratio 8.8 (10-20); Blood Urea Nitrogen 5 mg/dl (6-23); Calcium 8.3 mg/dl (8.5-10.1); Carbon Dioxide 26 mmol/L (21-32); Chloride 106 mmol/L (98-107); Creatinine Clr Calc Pharmacy 138.4 ml/min; Est GFR (African American) > 150.0 ml/min; Est GFR (Non-African American) 133.5 ml/min; Glucose 95 mg/dl (70-99(Fasting)); Potassium 3.6 mmol/L (3.5-5.1); Sodium 137 mmol/L (136-145)
[2022-02-05] MEDS: AMPHETAMINE ASP/SULF/DEXTRAMPH 10 MG TAB PO SCH (09:42)
[2022-02-05] MEDS: ESCITALOPRAM OXALATE 10 MG TAB PO SCH (09:42)
[2022-02-05] MEDS: FAMOTIDINE 20 MG in SYRINGE 3 ML IV SCH (10:57)
[2022-02-05] MEDS ORDERED: cefTRIAXone SODIUM 1,000 MG in DEXTROSE 5% 50 ML IV SCH (21:00)
== END 2022-02-05 13:13 | disposition home or self-care (01) ==
LOC: ED 15:58 → 3W 15:58 → SUATTDRO 23:09 → 3W 23:40